=== PATIENT | female | born 1980 | race Two or more races ===

== ENCOUNTER → 2017-05-07 | Day surgery (SDC) | payer BC ==
[~2017-05-07] MED LIST: LACTATED RINGER'S 1000 ML INJ 1,000 ML ONE; PROPOFOL 200 MG/20 ML AMP IV ONE
--- NOTE | 2017-05-07 08:02 | GIPROC ---
[facility] [address] [facility] [place], [address] EGD PROCEDURE REPORT EXAM DATE: 05/07/2017 PATIENT NAME: Yari Wilson MR #: [id number] BIRTHDATE: 1980 ATTENDING: Maurice Andrade MD ORDER #: [id number] WIRE CHARGER: Geeta Garcia BEEF LUGGER STATUS: outpatient INDICATIONS: The patient is a 36 yr old female here for an EGD due to history of esophageal reflux PROCEDURE PERFORMED: EGD w/ biopsy MEDICATIONS: None and Per Anesthesia. TOPICAL ANESTHETIC: none CONSENT: The patient understands the risks and benefits of the procedure and understands that these risks include, but are not limited to: sedation, allergic reaction, infection, perforation and/or bleeding. Alternative means of evaluation and treatment include, among others: physical exam, x-rays, and/or surgical intervention. The patient elects to proceed with this endoscopic procedure. medical equipment was checked for proper function. Hand hygiene and appropriate measures for infection prevention was taken. After the risks, benefits and alternatives of the procedure were thoroughly explained, Informed consent was verified, confirmed and timeout was successfully executed by the treatment team. The patient was anesthetized with anesthesia and the EC-2990i ([id number]) endoscope was introduced through the mouth and advanced to the second portion of the duodenum. Biospy obtained of gasric antrum. Retroflexed views revealed no abnormalities The gastroscope was then slowly withdrawn and removed. STOMACH: There was mild gastritis in the gastric antrum. ADVERSE EVENTS: There were no complications. IMPRESSIONS: 1. There was mild gastritis in the gastric antrum 2. Retroflexed views revealed no abnormalities RECOMMENDATIONS: 1. Await biopsy results. Biopsy results will not be ready for 7-10 days. If you don't hear from us in two weeks, call our office for biopsy results. 2. Continue PPI PATIENT CONDITION: fair DISPOSITION: Home REPEAT EXAM: NONE Maurice Andrade MD eSigned: Maurice Andrade MD 05/07/2017 8:01 AM cc: Eliezer Hamlin M.D.
== END | disposition home or self-care (01) ==
LOC: ESDC 06:42
PROVIDERS: ATTEND Surgery
DX: K21.9 Gastro-esophageal reflux disease without esophagitis (principal); K29.70 Gastritis, unspecified, without bleeding
CPT/HCPCS: 00740; 43239; 88305; 88312; J3010; J7120

== ENCOUNTER 2017-08-11 05:45 | Inpatient (IN) | payer BC ==
[~2017-08-11] VITALS: Ht 163.8 cm; Wt 93.0 kg
[2017-08-11] MEDS ORDERED: metroNIDAZOLE 500 MG INJ 100 ML IV SCH (07:00)
[2017-08-11] MEDS ORDERED: SODIUM CHLORID 0.9% 500 ML IV PRN (07:00)
[2017-08-11] MEDS ORDERED: ONDANSETRON HCL 4 MG/2 ML VIAL IV PUSH SCH (07:00)
[2017-08-11] MEDS ORDERED: CHLORHEXIDINE GLUCONATE 2 % 1 PACK (2 CLOTHS) TOPICAL PRN (07:00)
[2017-08-11] MEDS ORDERED: ceFAZolin 2 GM PREMIX 50 ML IV SCH (07:00)
[2017-08-11] MEDS ORDERED: APREPITANT 40 MG CAP PO SCH (07:00)
[2017-08-11] MEDS ORDERED: METOPROLOL TARTRATE 25 MG TAB PO PRN (07:00)
[2017-08-11] MEDS ORDERED: SCOPOLAMINE 1.5 MG PATCH T-DERMAL SCH (07:00)
[2017-08-11] MEDS ORDERED: LACTATED RINGER'S 1000 ML IV PRN (07:00)
[2017-08-11] MEDS ORDERED: POVIDONE IODINE 5% (ANTISEPSIS KIT) 4 APPLICATIONS EACH NARE PRN (07:00)
[2017-08-11] MEDS ORDERED: ACETAMINOPHEN 1000 MG/100 ML 100 ML IV SCH (07:00)
[2017-08-11] MEDS ORDERED: FEXO15TA PO (07:38)
[2017-08-11] MEDS ORDERED: GABA300C5 PO (07:38)
[2017-08-11] MEDS ORDERED: PROT40TA PO (07:38)
[2017-08-11] MEDS ORDERED: ALBUAER3 INH (07:38)
[2017-08-11] MEDS ORDERED: CLON.1T T-DERMAL (07:38)
[2017-08-11] MEDS ORDERED: FLUT1SPR5 EACH NARE (07:38)
[2017-08-11] MEDS ORDERED: VANCOMYCIN INJ 1,250 MG in SODIUM CHLOR 0.9% 250 ML INJ 250 ML IV ONE (10:00)
[2017-08-11] MEDS ORDERED: BUPIVACAINE/EPINEPHRINE 0.25% PF 10 ML VIAL INFIL ONE (10:00)
[2017-08-11] MEDS ORDERED: SUGAMMADEX SODIUM 200 MG/2 ML VIAL IV PUSH ONE ×2 (10:36)
[2017-08-11] MEDS ORDERED: NALOXONE HCL 0.4 MG/ML AMP IV PUSH PRN (11:15)
[2017-08-11] MEDS ORDERED: SODIUM CHLORIDE 0.9% FLUSH 10 ML FLUSH IV FLUSH PRN (11:15)
[2017-08-11] MEDS ORDERED: diphenhydrAMINE HCL 50 MG/ML VIAL IV PUSH PRN (11:15)
[2017-08-11] MEDS ORDERED: diphenhydrAMINE HCL ELIXIR 12.5 MG/5 ML CUP PO PRN (11:15)
[2017-08-11] MEDS ORDERED: ACETAMINOPHEN 325MG/HYDROcodone 7.5MG/15ML UDC PO PRN ×2 (11:15)
[2017-08-11] MEDS ORDERED: DO NOT ADM ANY ANTICOAGULANT DRUGS PRN (11:25)
[2017-08-11] MEDS ORDERED: *morphine SULFATE 8 MG/ML PERIprocedure ONLY ONE ×2 (11:32→11:51)
[2017-08-11] MEDS: D5-1/2 NS + KCL 20 MEQ INJ 1,000 ML IV SCH ×2 (11:56→20:59)
[2017-08-11] MEDS ORDERED: *LABETALOL HCL 100 MG/20 ML VIAL PERIprocedural Use ONLY ONE (12:32)
[2017-08-11] MEDS: MORPHINE SULFATE 30 MG/30 ML PCA IV SCH ×2 (12:55→13:39)
[2017-08-11] MEDS ORDERED: *ENALAPRILAT 1.25 MG/ML VIAL PERIprocedural Use ONLY ONE (12:57)
[2017-08-11] MEDS ORDERED: Post-op Orders (for Pharmacy) MISC OTHER ONE (13:00)
[2017-08-11] MEDS: ENALAPRILAT 1.25 MG/ML VIAL IV PUSH PRN (13:41)
[2017-08-11] MEDS: METOCLOPRAMIDE HCL 10 MG/2 ML VIAL IV PUSH SCH ×2 (13:44→20:59)
[2017-08-11] MEDS: PCA - TOTAL MG MORPHINE DELIVERED PER SHIFT SCH ×2 (14:00→21:03)
[2017-08-11] MEDS ORDERED: HYDROmorphone HCL PF 1 MG/ML VIAL ONE (14:00)
[2017-08-11] MEDS: ENOXAPARIN SODIUM 40 MG/0.4 ML SYRINGE SQ SCH (15:20)
[2017-08-11] MEDS: metroNIDAZOLE 500 MG INJ 100 ML IV SCH ×2 (15:25→23:59)
[2017-08-11 16:00] VITALS: BP 152/84; PULSE 79; RESP 19; TEMP 98.9; O2SAT 95
[2017-08-11] MEDS: ONDANSETRON HCL 4 MG/2 ML VIAL IV PUSH PRN (17:23)
[2017-08-11 20:47] VITALS: BP 147/78; PULSE 72; RESP 18; TEMP 97.3; O2SAT 97
[2017-08-11] MEDS: VANCOMYCIN INJ 1,000 MG in SODIUM CHLOR 0.9% 250 ML INJ 250 ML IV SCH (20:58)
[2017-08-11] MEDS: SODIUM CHLORIDE 0.9% FLUSH 10 ML FLUSH IV FLUSH SCH (21:00)
[2017-08-12] VITALS (13 sets, daily range): BP systolic 84–188; BP diastolic 58–105; PULSE 69–87; RESP 16–20; TEMP 96.5–99.3; O2SAT 93–98
[2017-08-12] MEDS: ONDANSETRON HCL 4 MG/2 ML VIAL IV PUSH PRN ×2 (00:10→20:42)
[2017-08-12] MEDS: ENALAPRILAT 1.25 MG/ML VIAL IV PUSH PRN ×3 (00:10→23:22)
[2017-08-12] MEDS: RESP: ALBUTEROL 2.5 MG/3 ML NEB (SCH) INH ×4 (00:40→12:00)
[2017-08-12] MEDS: METOCLOPRAMIDE HCL 10 MG/2 ML VIAL IV PUSH SCH ×2 (02:59→08:35)
[2017-08-12] MEDS: PCA - TOTAL MG MORPHINE DELIVERED PER SHIFT SCH (06:00)
[2017-08-12] MEDS ORDERED: FLUCONAZOLE 100 MG TAB PO ONE (06:15)
[2017-08-12] MEDS: D5-1/2 NS + KCL 20 MEQ INJ 1,000 ML IV SCH ×3 (06:16→22:00)
--- NOTE | 2017-08-12 06:24 | MP ---
cc: COLLEEN HAMLIN DATE OF 1980 DATE OF OPERATION 08/11/2017 PREOPERATIVE DIAGNOSIS Severe obesity with a BMI of 35, complicated by essential hypertension. POSTOPERATIVE DIAGNOSIS Severe obesity with a BMI of 35, complicated by essential hypertension. PROCEDURE Laparoscopic vertical sleeve gastrectomy over a 36-Thai ViSiGi bougie. SURGEON Dr. Colleen Hamlin C[employer] Dr. Maurice Andrade's assistance was necessary for the procedure secondary to the complexity of the procedure. Dr. Andrade helped with manipulation and exposure during the procedure. The electrical assistant provided by [employer] was utilized on the back table and managing the camera. ANESTHESIA General endotracheal anesthesia. ESTIMATED BLOOD LOSS Scant. FINDINGS Fatty liver. SPECIMENS None. COMPLICATIONS None. OPERATION The patient was brought to the operating room and placed on the operating table in supine position, bilateral sequential inflation device placed on lower extremities. General anesthesia was instituted. Antibiotics was initiated. The abdomen was prepped and draped sterilely. A point 15 cm distal to the xiphoid in the midline was anesthetized with 0.25% Marcaine with epinephrine. A skin incision was made, 5-mm OptiView port placed under direct vision and pneumoperitoneum created. Under direct vision, three 5-mm left upper quadrant, a 15-mm right upper quadrant, 5-mm right upper quadrant ports placed. Prior to placement of all ports the skin and peritoneum were anesthetized with 0.25% Marcaine with epinephrine. The patient was placed in reverse Trendelenburg position left side up, the Diana-Flex retractor was placed. The left lobe of the liver was retracted. The vasculature along the greater curvature of the stomach was using harmonic scalpel starting a distance 5-cm proximal to the pylorus and carried towards the angle of His. The angle of His was taken down bluntly. Posterior ligamentous attachments were sharply . A 36-Thai ViSiGi bougie was placed at the start of the case, was placed on suction. Division of the stomach started 5 cm proximal to the pylorus and carried towards the angle of His to completely excise approximately 80% of the stomach. This was performed using an Poteet Flex stapler at the pylorus. The first firing was with a black load, followed by a green load and four gold loads. All staple loads were reinforced with SeamGuard. A distance of 2 cm was left from the angle incisura and the staple line and a distance of 1 cm left from the GE junction and the staple line. The pylorus was then occluded, methylene blue tinged saline was instilled. There was no evidence of extravasation. The gastrocolic ligament was then sutured to the posterior leaflet of the SeamGuard using a 2-0 Vicryl suture in a running manner. Bleeding points were controlled with Evicel. The excised stomach was removed from the peritoneal cavity through the 15-mm port site in an Endopouch. The fascia at the 15-mm port site was approximated with 0 Vicryl suture. The CO2 was then released, all ports were removed, all skin incisions closed with 4-0 Monocryl. The abdominal wall was cleaned. A sterile dressing was placed. The patient was awakened and taken to the recovery room. MD ANGELY Sims/SSB /6:48 PM /6:06 AM
[2017-08-12] MEDS: MORPHINE SULFATE 30 MG/30 ML PCA IV SCH (07:22)
[2017-08-12] MEDS: metroNIDAZOLE 500 MG INJ 100 ML IV SCH (08:35)
[2017-08-12] MEDS: PANTOPRAZOLE SOD 40 MG DELAYED RELEASE TAB PO SCH (08:43)
[2017-08-12] MEDS: SODIUM CHLORIDE 0.9% FLUSH 10 ML FLUSH IV FLUSH SCH ×2 (08:43→20:43)
[2017-08-12] MEDS ORDERED: METOCLOPRAMIDE HCL 10 MG/2 ML VIAL IV PUSH PRN (11:15)
[2017-08-12] MEDS: VANCOMYCIN INJ 1,000 MG in SODIUM CHLOR 0.9% 250 ML INJ 250 ML IV SCH (12:45)
[2017-08-12 15:30] LABS: AUTOMATED NEUTROPHIL # 5.7 TH/MM3 (1.8-7.7); BASOPHIL % 0.6 % (0.0-2.0); EOSINOPHIL % 0.1 % (0.0-4.0); HEMATOCRIT 42.9 % (35.0-46.0); HEMO FLAGS DIFF FINAL; LYMPH % 18.3 % (9.0-44.0); LYMPHOCYTE # 1.5 TH/MM3 (1.0-4.8); MEAN CORPUSCULAR HEMOGLOBIN 27.7 PG (27.0-34.0); MEAN CORPUSCULAR HGB CONC 31.9 % (32.0-36.0); MONO % 10.4 % (0.0-8.0); NEUT % 70.6 % (16.0-70.0); PLATELET COUNT 140 TH/MM3 (150-450); RED BLOOD COUNT 4.93 MIL/MM3 (4.00-5.30); RED CELL DISTRIBUTION WIDTH 14.9 % (11.6-17.2)
[2017-08-12 15:47] LABS: BICARBONATE 23.9 MEQ/L (21.0-32.0); MAGNESIUM 1.8 MG/DL (1.5-2.5); POTASSIUM 3.7 MEQ/L (3.5-5.1)
--- NOTE | 2017-08-12 16:28 | HHI.PR ---
Subjective Subjective Notes Sitting up in bed Going slow with fluids Objective Vitals/I&O Vital Signs Date Time Temp Pulse Resp B/P (MAP) Pulse Ox O2 Delivery O2 Flow Rate FiO2 08/12/17 16:00 98.6 82 17 163/93 (116) 97 08/12/17 08:14 21 08/11/17 15:15 Nasal Cannula 2 Labs Laboratory Tests Test 08/12/17 14:53 White Blood Count 8.0 Red Blood Count 4.93 Hemoglobin 13.7 Hematocrit 42.9 Mean Corpuscular Volume 87.0 Mean Corpuscular Hemoglobin 27.7 Mean Corpuscular Hemoglobin Concent 31.9 Red Cell Distribution Width 14.9 Platelet Count 140 Mean Platelet Volume 10.7 Neutrophils (%) (Auto) 70.6 Lymphocytes (%) (Auto) 18.3 Monocytes (%) (Auto) 10.4 Eosinophils (%) (Auto) 0.1 Basophils (%) (Auto) 0.6 Neutrophils # (Auto) 5.7 Lymphocytes # (Auto) 1.5 Monocytes # (Auto) 0.8 Eosinophils # (Auto) 0.0 Basophils # (Auto) 0.0 CBC Comment DIFF FINAL Differential Comment Blood Urea Nitrogen 6 Creatinine 0.75 Random Glucose 100 Calcium Level 8.2 Magnesium Level 1.8 Sodium Level 136 Potassium Level 3.7 Chloride Level 105 Carbon Dioxide Level 23.9 Anion Gap 7 Estimat Glomerular Filtration Rate 88 Abdomen: Post-op tenderness Extremities: Perfused Wound Wound : Wound Location: Abdomen Appearance: Clean & Dry A/P Assessment and Plan 36yo F POD#1 laparoscopic VSG -Restart home meds for blood pressure controll -Transition to oral pain control -Continue with frequent ambulation -Continue to increase fluids as tolerated Discharge Planning D/C home tomorrow Sonya Pina Aug 12, 2017 16:28
[2017-08-12] MEDS: ENOXAPARIN SODIUM 40 MG/0.4 ML SYRINGE SQ SCH (17:54)
[2017-08-12] MEDS ORDERED: cloNIDine HCL 0.1 MG/24 HR PATCH T-DERMAL SCH (18:00)
[2017-08-12] MEDS ORDERED: REMOVE OLD CATAPRES (CLONIDINE) PATCH T-DERMAL SCH (18:00)
[2017-08-12] MEDS ORDERED: GABAPENTIN 300 MG CAP PO SCH (21:00)
[2017-08-13] VITALS (8 sets, daily range): BP systolic 148–183; BP diastolic 86–96; PULSE 72–85; RESP 16–17; TEMP 98.7–99.2; O2SAT 97–98
[2017-08-13] MEDS: ENALAPRILAT 1.25 MG/ML VIAL IV PUSH PRN (04:59)
[2017-08-13] MEDS: D5-1/2 NS + KCL 20 MEQ INJ 1,000 ML IV SCH ×2 (04:59→12:19)
[2017-08-13] MEDS: ONDANSETRON HCL 4 MG/2 ML VIAL IV PUSH PRN ×2 (06:46→12:19)
[2017-08-13] MEDS: PANTOPRAZOLE SOD 40 MG DELAYED RELEASE TAB PO SCH (09:32)
--- NOTE | 2017-08-13 12:38 | HHI.PR ---
Subjective Subjective Notes Feeling better Tolerating PO fluids Nausea improving Objective Vitals/I&O Vital Signs Date Time Temp Pulse Resp B/P (MAP) Pulse Ox O2 Delivery O2 Flow Rate FiO2 08/13/17 12:00 98.7 77 17 169/96 (120) 98 164/94 (117) 08/12/17 21:07 21 08/11/17 15:15 Nasal Cannula 2 Labs Laboratory Tests Test 08/12/17 14:53 White Blood Count 8.0 Red Blood Count 4.93 Hemoglobin 13.7 Hematocrit 42.9 Mean Corpuscular Volume 87.0 Mean Corpuscular Hemoglobin 27.7 Mean Corpuscular Hemoglobin Concent 31.9 Red Cell Distribution Width 14.9 Platelet Count 140 Mean Platelet Volume 10.7 Neutrophils (%) (Auto) 70.6 Lymphocytes (%) (Auto) 18.3 Monocytes (%) (Auto) 10.4 Eosinophils (%) (Auto) 0.1 Basophils (%) (Auto) 0.6 Neutrophils # (Auto) 5.7 Lymphocytes # (Auto) 1.5 Monocytes # (Auto) 0.8 Eosinophils # (Auto) 0.0 Basophils # (Auto) 0.0 CBC Comment DIFF FINAL Differential Comment Blood Urea Nitrogen 6 Creatinine 0.75 Random Glucose 100 Calcium Level 8.2 Magnesium Level 1.8 Sodium Level 136 Potassium Level 3.7 Chloride Level 105 Carbon Dioxide Level 23.9 Anion Gap 7 Estimat Glomerular Filtration Rate 88 Abdomen: Post-op tenderness Extremities: Perfused Wound Wound : Wound Location: Abdomen Appearance: Clean & Dry A/P Assessment and Plan 36yo F POD#2 laparoscopic VSG -Continue with frequent ambulation -Continue to increase fluids as tolerated Discharge Planning D/C home today Sonya Pina Aug 13, 2017 12:38
[2017-08-13] MEDS ORDERED: SCOP1PAT2 T-DERMAL (12:40)
== END 2017-08-13 15:56 | disposition home or self-care (01) | DRG 621 ==
LOC: HSDI 05:45 → EDSTATUS 08:30 → N07B 15:45
PROVIDERS: ADMIT Surgery; ATTEND Surgery
PROC: 0DB64Z3 Excision of Stomach, Percutaneous Endoscopic Approach, Vertical (ICD-10-PCS; principal; 2017-08-11 09:42)
DX: E66.01 Morbid (severe) obesity due to excess calories (principal); K76.0 Fatty (change of) liver, not elsewhere classified; I10 Essential (primary) hypertension; Z68.35 Body mass index [BMI] 35.0-35.9, adult
CPT/HCPCS: 80048; 83735; 85025; 94150; 94640; 94664; J0131; J1170; J1650; J2270; J2405; J2765; J3370; J3480; J7050; J7120; J7613; J8501